=== PATIENT | male | born 1985 | race Caucasian/White ===

== ENCOUNTER 2024-07-03 15:10 | Outpatient (CLI) | payer OTHER, SELFPAY ==
--- OUTSIDE RECORDS SUMMARY | 2024-07-03 15:17 | XMS_ITS | Clinical Summary ---
Author Organization [facility] [employer] [facility] [place] Address [address] [place] [address] [place] [address] Care Team Providers Care Spray I Painter Name Role Phone Unavailable Primary Care Provider Unavailabl e Allergies No known active allergies Medications No known medications Active Problems Problem Noted Date Diagnosed Date Fatigue 03/15/2019 Major depressive disorder wi th single episode, in full remission 03/15/2019 Social anxiety disorder 03/15/2019 Family History Medical History Relation Name Comments No Known Problems Brother 1 No Known Problems Brother 2 No Known Problems Father Other Maternal Grandfather Alzheimer's Disease Maternal Grandmother No Known Problems Mother Unknown Paternal Grandfather Dementia Paternal Grandmother Relation Name Status Comments Brother 1 Alive Brother 2 Alive Father Alive Maternal Grandfather Alive Maternal Grandmother Mother Alive Paternal Grandfather Paternal Grandmother Social History Tobacco Use Types Packs/Day Years Used Date Smoking Tobacco: Former Smokeless Tobacco: Never Alcohol Use Standard Drinks/Week Comments Yes 0 (1 standard drink = 0.6 oz pur e alcohol) Sex and Gender Information Value Date Recorded Sex Assigned at Not on file Legal Sex Male 10:51 AM CDT Gender Identity Not on file Sexual Orientation Not on file Last Filed Vital Signs Vital Sign Reading Time Taken Comments Blood Pressure 110/74 06/05/2020 8:20 AM CDT Pulse 88 03/15/2019 8:31 AM CARAMEL CANDY MAKER HELPER Temperature 35.7 C (96.3 F) 03/15/2019 8:31 AM CARAMEL CANDY MAKER HELPER Respiratory Rate 16 03/15/2019 8:31 AM CARAMEL CANDY MAKER HELPER Oxygen Saturation 99% 03/15/2019 8:31 AM CARAMEL CANDY MAKER HELPER Inhaled Oxygen Concentration - - Weight 71.2 kg (157 lb) 06/05/2020 8:20 AM CDT Height 170.2 cm (5' 7) 06/05/2020 8:20 AM CDT Body Mass Index 24.59 06/05/2020 8:20 AM CDT Plan of Treatment Health Maintenance Due Date Last Done Comments DTAP/TDAP/TD VACCINES (1 - Tdap) 2005 HEPATITIS B VACCINES (1 of 3 - 19+ 3-dose series) 2005 INFLUENZA VACCINE (#1) 2023 HPV VACCINES Aged Out No longer eligi ble based on patient's age to complete this topic
--- OUTSIDE RECORDS SUMMARY | 2024-07-03 15:17 | XMS_ITS | Encounter Summary ---
Author Organization [facility] Address [address] [place] [address] Care Team Providers Care Newspaper Deliverer Name Role Phone Unavailable Primary Care Provider Unavailabl e Encounter Details Date Type Department Care Team (Late st Contact Info) Description 11/09/2017 Lab Requisition [facility] Care DermPath Lab [address] [facility] [place] [id number] Avtar Reece MD [address] [place] [address] Social History Tobacco Use Types Packs/Day Years Used Date Smoking Tobacco: Never Assessed Sex and Gender Information Value Date Recorded Sex Assigned at Not on file Legal Sex Male 11:25 AM CDT Gender Identity Not on file Sexual Orientation Not on file documented as of this encounter Plan of Treatment Not on file documented as of this encounter Procedures Procedure Name Priority Date/Time Associated Diagnosis Comments DERMATOPATHOLOGY Routine 11/08/2017 12:0 0 AM CDT documented in this encounter Results * DERMATOPATHOLOGY (11/08/2017 12:00 AM CDT) Case Report Dermatopathology Report Case: [id number] Authorizing Provider: Avtar Reece MD Collected: 11/08/2017 12:00 AM Pathologist: Luis Gant MD Received: 11/09/2017 12:05 PM Specimens: A) - Skin, left preauric skin B) - Skin, left preauric skin laterally 1:14 PM CDT DERMATOPATHOLOGY LABORATORY Final Diagnosis Specimen A. SKIN, left preauric skin: ACCESSORY TRAGUS (Q17.0) Specimen B. SKIN, left preauric skin laterally: ACCESSORY TRAGUS (Q17.0) 8 1:14 PM CDT DERMATOPATHOLOGY LABORATORY at 1314 CDT Clinical History A-B: R/O dys nevus vs acc evens tragus. 1:14 PM CDT DERMATOPATHOLOGY LABORATORY Gross Description Specimen A: Received is one formalin filled container labeled with the patient's name and designated left preauric skin. The specimen consists of a shave (2 pieces) biopsy measuring [id number], 4a0o2la. Jar 0. Specimen B: Received is one formalin filled container labeled with the patient's name and designated left preauric skin laterally. The specimen consists of a shave biopsy measuring [id number]. Jar 0. 1:14 PM CDT DERMATOPATHOLOGY LABORATORY Microscopic Description Specimen A. SKIN, left preauric skin: Sections show a dome-shaped lesion with a fibrovascular core with numerous hair follicles some of which are of vellus type. Specimen B. SKIN, left preauric skin laterally: Sections show a dome-shaped lesion with a fibrovascular core with numerous hair follicles some of which are of vellus type. 1:14 PM CDT DERMATOPATHOLOGY LABORATORY Disclaimer An external and internal positive and negative controls are appropriate for the histochemical, immunohistochemical and immunofluorescence stain(s) in this case (if any), except where stated explicitly. The performance characteristics of the stain(s) cited in this report were developed and its performance characteristic determined by the Dermatopathology Laboratory at [facility]. These tests need not be, and therefore are not, approved by the [place] Food and Drug Administration. The tests are used for clinical purposes. Billing Codes Specimen Charges Stain Charges 28783 34227 1 1 1:14 PM CDT DERMATOPATHOLOGY LABORATORY Embedded Images 1:14 PM CDT DERMATOPATHOLOGY LABORATORY Pathology/Cytology TISSUE SPECIMEN FROM SKIN / Unknown 11/08/2017 11/09/2017 12:05 PM CDT Miscellaneous samples (specimen) TISSUE SPECIMEN FROM SKIN / Unknown 11/08/2017 11/09/2017 12:05 PM CDT us Avtar Reece MD LAB - PATHOLOGY/CYTOLOGY ORD ERABLES Final Result DERMATOPATHOLOGY LABORATORY [facility] - Department of Dermatology [address] [facility] [place] [address], [facility] [phone] documented in this encounter Visit Diagnoses Not on filedocumented in this encounter
--- OUTSIDE RECORDS SUMMARY | 2024-07-03 15:17 | XMS_ITS | Clinical Summary ---
Author Organization [facility] Address [address] [facility] [place] [address] Care Team Providers Care Political Science Instructor Name Role Phone Unavailable Primary Care Provider Unavailabl e Source Comments [facility]non-owned Affiliates and Associated Physician Practices is amultiple site organization consisting of ambulatory clinics and hospital sitesin [place], [place], [place] and [place]. This disclosure is being madepursuant to the Care Everywhere program and may not contain all information available regarding this patient. Last updated 17.[facility] Social History Tobacco Use Types Packs/Day Years Used Date Smoking Tobacco: Never Assessed Sex and Gender Information Value Date Recorded Sex Assigned at Not on file Legal Sex Male 11:25 AM CDT Gender Identity Not on file Sexual Orientation Not on file Plan of Treatment Health Maintenance Due Date Last Done Comments HIV SCREENING 2001 HEPATITIS C SCREENING 09/29/2004 DTAP/TDAP/TD VACCINES (1 - Tdap) 2005 HEPATITIS B VACCINE (1 of 3 - 19+ 3-dose series) 2005 COVID-19 VACCINE (1 - 2023-2 5 season) 2023 DEPRESSION SCREENING 02/08/2024 INFLUENZA VACCINE (Season Ended) 2024 ZOSTER VACCINE (1 of 2) 2036 HIB VACCINE Aged Out No longer eligi ble based on patient's age to complete this topic HPV VACCINE Aged Out No longer eligi ble based on patient's age to complete this topic MENINGOCOCCAL (Group B) VACC INE SHARED DECISION-MAKING Aged Out No longer eligibl e based on patient's age to complete this topic MENINGOCOCCAL GROUPS A/C/Y/W VACCINE Aged Out No longer eligible b ased on patient's age to complete this topic PNEUMOCOCCAL VACCINE Aged Out No long er eligible based on patient's age to complete this topic Insurance [facility]
[2024-07-03 15:44] LABS: Hematocrit 44.7 % (42.0-52.0); Hemoglobin 15.3 g/dL (14.0-18.0); Mean Corpuscular HGB Conc 34.2 g/dl (32-36); Mean Corpuscular Hemoglobin 31.6 pg (26-34); Mean Corpuscular Volume 92.4 fl (80-100); Mean Platelet Volume 9.7 fl (7.4-10.4); Platelet Count Result 240 k/mm3 (150-375); Red Blood Count 4.84 M/mm3 (4.6-6.20); Red Cell Distribution Width 12.6 % (11.5-14.5); White Blood Count 5.9 K/mm3 (4.5-10.0)
[2024-07-03 16:22] LABS: Vitamin D 25 Hydroxy 13.1 ng/mL
[2024-07-03 17:09] LABS: Alanine Aminotransferase 28 U/L (6-50); Albumin Level 4.5 g/dL (3.5-5.1); Alkaline Phosphatase 57 U/L (38-126); Anion Gap 9 mmol/L (4-12); Aspartate Amino Transferase 27 U/L (17-59); Bilirubin,Total 1.2 mg/dL (0.2-1.3); Blood Urea Nitrogen 13 mg/dL (9-20); Calcium 9.6 mg/dL (8.4-10.2); Carbon Dioxide 28 mmol/L (22-30); Chloride 104 mmol/L (98-107); Cholesterol 240 mg/dL (0-200); Estimated Glomerular Filt Rate > 60; Glucose 89 mg/dL (65-110); HDL Direct 47 mg/dL; Potassium 4.3 mmol/L (3.4-5.0); Sodium 141 mmol/L (137-145); Triglycerides 157 mg/dL (<150)
[2024-07-03 17:20] LABS: LDL Cholesterol Direct 138 mg/dL
== END 2024-07-03 15:11 | disposition home or self-care (01) ==
PROVIDERS: PCP Nurse Practitioner Family; Visit Provider Nurse Practitioner Family
DX: Z00.00 Encounter for general adult medical examination without abnormal findings (principal); K64.9 Unspecified hemorrhoids; R53.82 Chronic fatigue, unspecified; Z13.0 Encounter for screening for diseases of the blood and blood-forming organs and certain disorders involving the immune mechanism; Z13.29 Encounter for screening for other suspected endocrine disorder; R79.89 Other specified abnormal findings of blood chemistry; Z13.220 Encounter for screening for lipoid disorders; Z13.228 Encounter for screening for other metabolic disorders
CPT/HCPCS: 36415; 80053; 80061; 82306; 84443; 85027

== ENCOUNTER 2024-09-06 14:49 | Outpatient (CLI) | payer OTHER, SELFPAY ==
--- OUTSIDE RECORDS SUMMARY | 2024-09-06 14:53 | XMS_ITS | Clinical Summary ---
Author Organization [facility] Address [address] [place] [address] Care Team Providers Care Structural Design Engineer Name Role Phone Unavailable Primary Care Provider Unavailabl e Source Comments [facility] [employer],non-owned Affiliates and Associated Physician Practices is amultiple site organization consisting of ambulatory clinics and hospital sitesin [place], [place], [place] and [place]. This disclosure is being madepursuant to the Care Everywhere program and may not contain all information available regarding this patient. Last updated 17.[facility] [employer] Social History Tobacco Use Types Packs/Day Years [...] of 3 - 19+ 3-dose series) 2005 HPV VACCINE (1 - 3-dose SCDM series) 2013 COVID-19 VACCINE (1 - 2023-2 5 season) 2023 DEPRESSION SCREENING 02/08/2024 INFLUENZA VACCINE (#1) 2024 ZOSTER VACCINE (1 of 2) 2036 [...] patient's age to complete this topic Insurance [facility]
--- OUTSIDE RECORDS SUMMARY | 2024-09-06 14:53 | XMS_ITS | Encounter Summary ---
Author Organization [facility] Address [address] [facility] [address] Care Team Providers Care Road Maker Name Role Phone Unavailable Primary Care Provider Unavailabl e Encounter Details Date Type Department Care Team (Late st Contact Info) Description 11/09/2017 Lab Requisition [facility] Care DermPath Lab [address] [facility] [place] [phone] Avtar Reece MD [address] [place] [address] Social History Tobacco Use Types [...] AM CDT) Case Report Dermatopathology Report Case: [id number] Authorizing Provider: Avtar Reece MD Collected: 11/08/2017 [...] of a shave (2 pieces) biopsy measuring 4g7l2ow, 9o1u3ou. Jar 0. Specimen B: Received is one formalin filled container labeled with the patient's name and designated left preauric skin laterally. The specimen consists of a shave biopsy measuring [id number]. Jar 0. 1:14 PM CDT DERMATOPATHOLOGY LABORATORY [...] characteristic determined by the Dermatopathology Laboratory at [facility]. These tests need not be, and therefore are not, approved by the [place] Food and Drug Administration. The tests are used for clinical purposes. Billing Codes Specimen Charges Stain Charges 85171 24274 1 1 1:14 PM CDT DERMATOPATHOLOGY LABORATORY Embedded Images 1:14 PM CDT DERMATOPATHOLOGY LABORATORY Pathology/Cytology TISSUE SPECIMEN FROM SKIN / Unknown 11/08/2017 11/09/2017 12:05 PM CDT Miscellaneous samples (specimen) TISSUE SPECIMEN FROM SKIN / Unknown 11/08/2017 11/09/2017 12:05 PM CDT us Avtar Reece MD LAB - PATHOLOGY/CYTOLOGY ORD ERABLES Final Result DERMATOPATHOLOGY LABORATORY [facility] - Department of Dermatology [address] [facility] [place] [address], [facility] [phone] documented in this encounter Visit Diagnoses Not on filedocumented in this encounter
--- OUTSIDE RECORDS SUMMARY | 2024-09-06 14:53 | XMS_ITS | Clinical Summary ---
Author Organization [facility] [employer] [place] Address [address] [place] [address] [place] [address] Care Team Providers Care Psychiatric Registered Nurse Name Role Phone Unavailable Primary Care Provider [...] AM CDT Pulse 88 03/15/2019 8:31 AM RESOURCE PROGRAM TEACHER Temperature 35.7 C (96.3 F) 03/15/2019 8:31 AM RESOURCE PROGRAM TEACHER Respiratory Rate 16 03/15/2019 8:31 AM RESOURCE PROGRAM TEACHER Oxygen Saturation 99% 03/15/2019 8:31 AM RESOURCE PROGRAM TEACHER Inhaled Oxygen Concentration - - Weight 71.2 kg (157 lb) 06/05/2020 8:20 AM CDT Height 170.2 cm (5' 7) 06/05/2020 8:20 AM CDT Body Mass Index 24.59 06/05/2020 8:20 AM CDT Plan of Treatment Health Maintenance Due Date Last Done Comments HPV VACCINES (1 - Male 3-dose series) 2001 DTAP/TDAP/TD VACCINES (1 - Tdap) 2005 HEPATITIS B VACCINES (1 of 3 - 19+ 3-dose series) 09/08 INFLUENZA VACCINE (#1) 2024
[2024-09-07 12:08] LABS: H. pylori Stool Ag, EIA Negative (Negative)
== END 2024-09-06 14:50 | disposition home or self-care (01) ==
LOC: ANHLAB 14:50
PROVIDERS: PCP Nurse Practitioner Family; Visit Provider Nurse Practitioner Family
DX: R10.13 Epigastric pain (principal); R14.0 Abdominal distension (gaseous)
CPT/HCPCS: 87338

== ENCOUNTER 2024-09-20 09:52 | Outpatient (CLI) | payer OTHER, SELFPAY ==
--- NOTE | ~2024-09-20 | US_ITS ---
US abdomen limited INDICATION: Right upper quadrant pain. Epigastric pain. PROCEDURE: Realtime right upper abdominal ultrasound. COMPARISON: No prior studies for comparison. FINDINGS: The pancreas is normal without focal mass or pancreatic ductal dilation. Liver echotexture is normal without focal mass or intrahepatic biliary dilatation. There is normal directional flow i n the portal vein. The gallbladder is normal without stones, gallbladder wall thickening or pericholecystic fluid. Comm on bile duct measures 3 mm. No sonographic Bender's sign. IMPRESSION: 1: Normal limited abdominal ultrasound. Reviewed, dictated and finalized at location A.
== END 2024-09-20 09:53 | disposition home or self-care (01) ==
LOC: MICIMG 09:53
PROVIDERS: PCP Nurse Practitioner Family; Visit Provider Nurse Practitioner Family
DX: R10.13 Epigastric pain (principal); R10.11 Right upper quadrant pain
CPT/HCPCS: 76705

== ENCOUNTER 2024-10-04 15:29 | Outpatient (CLI) | payer OTHER, SELFPAY ==
--- OUTSIDE RECORDS SUMMARY | 2024-10-04 15:33 | XMS_ITS | Clinical Summary ---
Author Organization [facility] [employer] [place] Address [address] [place] [address] [place] [address] Care Team Providers Care Enterostomal Therapy Nurse Name Role Phone Unavailable Primary Care [...] AM CDT Pulse 88 03/15/2019 8:31 AM SUPPLY PLANNER Temperature 35.7 C (96.3 F) 03/15/2019 8:31 AM SUPPLY PLANNER Respiratory Rate 16 03/15/2019 8:31 AM SUPPLY PLANNER Oxygen Saturation 99% 03/15/2019 8:31 AM SUPPLY PLANNER Inhaled Oxygen Concentration - - Weight 71.2 kg (157 lb) 06/05/2020 8:20 AM CDT Height 170.2 cm (5' 7) 06/05/2020 8:20 AM CDT Body Mass Index 24.59 06/05/2020 8:20 AM CDT Plan of Treatment Health Maintenance Due Date Last Done Comments DTAP/TDAP/TD VACCINES (1 - Tdap) 2005 HEPATITIS B VACCINES (1 of 3 - 19+ 3-dose series) 09/08 HPV VACCINES (1 - 3-dose SCDM series) 2013 INFLUENZA VACCINE (#1) 2024
--- OUTSIDE RECORDS SUMMARY | 2024-10-04 15:33 | XMS_ITS | Encounter Summary ---
Author Organization [facility] Address [address] [facility] [place] [address] Care Team Providers Care Mechanical Assembly Name Role Phone Unavailable Primary Care Provider Unavailabl e Encounter Details Date Type Department Care Team (Late st Contact Info) Description 11/09/[address] [facility] Care DermPath Lab [address] [facility] [place] [phone] Avtar Reece MD [address] [address] Social History Tobacco Use Types [...] AM CDT) Case Report Dermatopathology Report Case: [id number] Authorizing Provider: Avtar Reece MD Collected: 11/08/2017 [...] of a shave (2 pieces) biopsy measuring 8e7q7mb, 0m9y2gr. Jar 0. Specimen B: Received is one formalin filled container labeled with the patient's name and designated left preauric skin laterally. The specimen consists of a shave biopsy measuring 6u0e1mg. Jar 0. 1:14 PM CDT DERMATOPATHOLOGY LABORATORY [...] characteristic determined by the Dermatopathology Laboratory at [facility]. These tests need not be, and therefore are not, approved by the [place] Food and Drug Administration. The tests are used for clinical purposes. Billing Codes Specimen Charges Stain Charges 52357 51679 1 1 1:14 PM CDT DERMATOPATHOLOGY LABORATORY Embedded Images 1:14 PM CDT DERMATOPATHOLOGY LABORATORY Pathology/Cytology TISSUE SPECIMEN FROM SKIN / Unknown 11/08/2017 11/09/2017 12:05 PM CDT Miscellaneous samples (specimen) TISSUE SPECIMEN FROM SKIN / Unknown 11/08/2017 11/09/2017 12:05 PM CDT us Avtar Reece MD LAB - PATHOLOGY/CYTOLOGY ORD ERABLES Final Result DERMATOPATHOLOGY LABORATORY [facility] - Department of Dermatology [address] [facility] [place] [address], [facility] [phone] documented in this encounter Visit Diagnoses Not on filedocumented in this encounter
--- OUTSIDE RECORDS SUMMARY | 2024-10-04 15:33 | XMS_ITS | Clinical Summary ---
Author Organization [facility] Address [address] [facility] [place] [address] Care Team Providers Care Pot Reliner Name Role Phone Unavailable Primary Care Provider Unavailabl e Source Comments [facility] [employer],non-owned Affiliates and Associated Physician Practices is amultiple site organization consisting of ambulatory clinics and hospital sitesin [place], [place], [place] and [place]. This disclosure is being madepursuant to the Care Everywhere program and may not contain all information available regarding this patient. Last updated 17.[facility] [employer] Social History Tobacco Use Types Packs/Day Years [...] patient's age to complete this topic Insurance [facility]
[2024-10-09 13:08] LABS: Calprotectin, Fecal 76 ug/g (0-120)
== END 2024-10-04 15:30 | disposition home or self-care (01) ==
LOC: ANHLAB 15:31
PROVIDERS: PCP Nurse Practitioner Family; Visit Provider Nurse Practitioner Family
DX: K58.9 Irritable bowel syndrome, unspecified (principal)
CPT/HCPCS: 83993; 86231